=== PATIENT | female | born 1995 | race Caucasian/White ===

== ENCOUNTER 2021-09-26 10:00 | Emergency (ER) | payer OTHER, SELFPAY ==
--- NOTE | ~2021-09-26 | XR_ITS ---
XR ankle LT min 3V 09/26/2021 10:18 INDICATION: Inversion injury. PROCEDURE: 4 views left ankle COMPARISON: No prior studies for comparison. FINDINGS: Fracture, dislocation or subluxation is not identified. Ankle mortise intact. Talar dome is normal. The soft tissues appear within normal limits. No foreign bodies are identified. IMPRESSION: 1: NO ACUTE BONE OR JOINT ABNORMALITY IDENTIFIED. Reviewed, dictated and finalized at location A.
[2021-09-26 10:09] VITALS: BP 131/63; PULSE 68; RESP 14; TEMP 37.2; O2SAT 100
--- NOTE | 2021-09-26 10:49 | ED.GENADULT ---
HPI - General Adult General Chief complaint: Extremity Injury, Lower Stated complaint: Left ankle injury Source: patient Mode of arrival: ambulatory Limitations: no limitations History of Present Illness HPI narrative: Patient presents for evaluation of left ankle pain. Symptom onset last night. She was dancing and some [employer]'s when she slipped, twisting her left ankle and landing on it thereafter. She did not hit her head nor did she have a LOC. No other injuries. Pain is rated 8/10 in severity, sharp, stabbing. Pain is worse with movement and weightbearing. No paresthesias. She is having difficulty with weightbearing. She tried taking ibuprofen with mild improvement in her symptoms thereafter. LMP two weeks ago. Compliant with OC. No additional complaints or concerns. Related Data Home Medications Medication Instructions Recorded Confirmed norgestimate-ethinyl estradiol 0.25 tablet PO DAILY 09/26/21 09/26/21 [Estarylla] Allergies Allergy/AdvReac Type Severity Reaction Status Date / Time codeine Allergy Hyperactive Verified 09/26/21 10:20 latex Allergy Rash Verified 09/26/21 10:20 Penicillins Allergy Unknown Verified 09/26/21 10:20 Review of Systems Review of Systems: CONSTITUTIONAL: Denies fever, chills, or sweats. EYES: Denies visual changes, redness, or discharge. ENT: Denies rhinorrhea, congestion, sore throat, or otalgia. CARDIOVASCULAR: Denies chest pain, palpitations, or edema. RESPIRATORY: Denies cough or dyspnea. GASTROINTESTINAL: Denies abdominal pain, nausea, vomiting, or diarrhea. GENITOURINARY: Denies dysuria or hematuria. SKIN: Denies rash or itching. MUSCULOSKELETAL: Reports left ankle pain and swelling NEUROLOGIC: Denies headache, numbness, dizziness, or weakness. PSYCHIATRIC: Denies anxiety or depression. [facility] Past Medical History Medical History (Updated 09/26/21 @ 10:52 by Geronimo Arambula, CRISTIAN, BARI) No pertinent past medical history Surgical History Surgical History No pertinent past surgical history Family History Family History Mother No pertinent family history Social History Social History Smoking status: Never smoker Alcohol intake: current Alcohol use details: social Substance use: never Gender identity (if verbalized by the patient): Female Sexual Orientation (if Verbalized by the Patient): Straight or Heterosexual Spiritual care concerns: No Exam Narrative: GENERAL: Well-appearing, well-nourished, and in no acute distress. HEAD: Normocephalic, atraumatic. EYES: PERRLA and EOMI. ENT: Nares clear, no rhinorrhea or epistaxis. Mucous membranes moist. Oropharynx without tonsillar hypertrophy exudate or other lesions. Bilateral TMs pearly cheung nonbulging NECK: Supple. No adenopathy or masses. No carotid bruits or JVD CHEST: Clear to auscultation. No respiratory distress. No wheezes rales or rhonchi HEART: Regular rate and rhythm. No murmur heard. Normal peripheral pulses. ABDOMEN: Soft, nontender, nondistended, normal active bowel sounds. EXTREMITIES: She is able to dorsi and plantarflex the left foot but does so with hesitancy secondary to pain. There is mild tenderness in the anterior aspect of the ankle and proximal aspect of the foot dorsally. There is no crepitus or deformity. SKIN: Warm, dry, no rash. NEURO: No focal deficits. Alert and oriented x3. PSYCH: Normal mood and affect. Course Course Emergency Course: This is a 25-year-old female who presented with complaints of left ankle pain following a fall last night. X-ray was negative for fracture. Provided with Terrell wrap. Advised she should purchased Velcro ankle stirrup splint. She has crutches available at home. Offered medications for analgesic purposes, which she declined. She will use ibuprofen.
== END 2021-09-26 11:08 | disposition home or self-care (01) ==
PROVIDERS: Emergency Provider Nurse Practitioner; PCP Internal Medicine Infectious Disease
DX: S93.402A Sprain of unspecified ligament of left ankle, initial encounter (principal); W01.0XXA Fall on same level from slipping, tripping and stumbling without subsequent striking against object, initial encounter; Y93.41 Activity, dancing
CPT/HCPCS: 73610; 99213; G0463

== ENCOUNTER 2021-12-11 10:27 | Emergency (ER) | payer OTHER, SELFPAY ==
--- NOTE | ~2021-12-11 | XR_ITS ---
EXAMINATION: XR abdomen/kub 1V INDICATION: Flank pain TECHNIQUE: Supine views of the abdomen were obtained on 2 radiographs. COMPARISON: None FINDINGS: No urolithiasis is identified. The bowel gas pattern is normal. The visualized lung bases a re clear. There are no dilated loops of bowel. IMPRESSION: 1. No urolithiasis identified. Reviewed, dictated and finalized at location A.
[2021-12-11 10:44] VITALS: BP 139/65; PULSE 88; RESP 20; TEMP 37.1; O2SAT 99
--- NOTE | 2021-12-11 11:06 | ED.BACK ---
HPI - Back Pain/Injury General Chief Complaint: Urogenital-Female Stated Complaint: lower right back is hurting Time Seen by Provider: 12/11/21 10:55 Source: patient and RN notes reviewed Mode of arrival: ambulatory Limitations: no limitations History of Present Illness HPI Narrative: 26-year-old female presents with concern for right low back pain. Reports 2-day history of symptoms. She reports pain started after she was painting a room. She reports she was laying down last night when the pain worsened without exacerbation. She reports taking ibuprofen which slightly helps with the pain. She denies loss of bowel or bladder function, perianal anesthesia, abdominal pain, fever. She denies weakness in any extremity. She denies dysuria, frequency, urgency, hematuria. MD elicited complaint: back pain Related Data Home Medications Medication Instructions Recorded Confirmed norgestimate 0.25 mg-ethinyl 0.25 tablet PO DAILY 09/26/21 09/26/21 estradiol 35 mcg tablet (Estarylla) Allergies Allergy/AdvReac Type Severity Reaction Status Date / Time codeine Allergy Hyperactive Verified 09/26/21 10:20 latex Allergy Rash Verified 09/26/21 10:20 Penicillins Allergy Unknown Verified 09/26/21 10:20 Review of Systems Review of Systems: CONSTITUTIONAL: Denies malaise, chills, sweats, or fever. CARDIOVASCULAR: Denies chest pain, palpitations, or edema. RESPIRATORY: Denies cough or dyspnea. GASTROINTESTINAL: Denies abdominal pain, nausea, vomiting, diarrhea, loss of bowel function GENITOURINARY: Denies dysuria, hematuria, frequency, loss of bladder function. SKIN: Denies rash or itching. MUSCULOSKELETAL: Reports right low back pain NEUROLOGIC: Denies numbness, weakness, or headache. All systems reviewed & are unremarkable except as noted in HPI and below PMFSH Past Medical History Medical History (Updated 12/11/21 @ 11:38 by Huong Javier NP) No pertinent past medical history Surgical History Surgical History No pertinent past surgical history Family History Family History Mother No pertinent family history Social History Social History Smoking status: Never smoker Alcohol intake: current Alcohol use details: social Substance use: never Gender identity (if verbalized by the patient): Female Sexual Orientation (if Verbalized by the Patient): Straight or Heterosexual Spiritual care concerns: No Comments At time of signature, agree with nursing past medical, surgical, social and family history. There is no relevant family history pertinent to the presenting complaint Exam Narrative: GENERAL: Well-appearing, well-nourished, and in no acute distress. HEAD: Normocephalic, atraumatic. EYES: PERRLA and EOMI. NECK: Supple. No lymphadenopathy. CHEST: Clear to auscultation. No respiratory distress. HEART: Regular rate and rhythm. Distal pulses palpable and equal, cap refill <3 seconds ABDOMEN: Soft, nontender, nondistended, normal active bowel sounds, no palpable or pulsatile masses. No CVA tenderness MUSCULOSKELETAL: Normal range of motion and strength in all extremities; 5/5 strength with hip flexion and extension, dorsiflexion and extension, knee flexion and extension, plantar flexion and extension. Normal sensation in dermatomal distributions with sensitivity to light touch and pain. No midline back tenderness to palpation. No paraspinal tenderness. Transfers from lying to sitting to standing. SKIN: Warm, dry, no rash. No ecchymosis, erythema, open wounds to back. NEURO: No focal deficits. Alert and oriented x3. Reflexes intact. Normal gait. PSYCH: Normal mood and affect Course Course Emergency Course: Patient is aware of diagnosis, understands and agrees to treatment plan. Anticipatory guidance given. Patient agrees to f
== END 2021-12-11 11:48 | disposition home or self-care (01) ==
PROVIDERS: Emergency Provider Nurse Practitioner; PCP Internal Medicine Infectious Disease
DX: M54.50 Low back pain, unspecified (principal)
CPT/HCPCS: 74018; 81003; 99213; G0463

== ENCOUNTER 2022-11-29 12:22 | Emergency (ER) | payer OTHER, SELFPAY ==
[2022-11-29 12:27] VITALS: BP 138/77; PULSE 80; RESP 20; TEMP 36.9; O2SAT 100
--- NOTE | 2022-11-29 12:27 | ED.URI ---
HPI - URI/Sore Throat General Chief Complaint: Upper Respiratory Infection Stated Complaint: cold/ sinus Source: patient and RN notes reviewed Limitations: no limitations History of Present Illness HPI Narrative: Jv is a 27-year--old female with complaints of nasal congestion, nasal drainage and cough since Monday. Patient reports frequent productive cough. States that she has had nasal congestion since Monday, but her nasal drainage was yellow/green today. She denies chest pain or shortness of breath. States that she had a mild sore throat on Monday, but has not had a sore throat since then. She denies ear pain. Denies known fevers, but reports feeling warm earlier today. Patient also reports increased fatigue. Related Data Home Medications Medication Instructions Recorded Confirmed norgestimate 0.25 mg-ethinyl 0.25 tablet PO DAILY 09/26/21 11/29/22 estradiol 35 mcg tablet (Estarylla) Allergies Allergy/AdvReac Type Severity Reaction Status Date / Time codeine Allergy Hyperactive Verified 09/26/21 10:20 latex Allergy Rash Verified 09/26/21 10:20 Penicillins Allergy Unknown Verified 09/26/21 10:20 Review of Systems Review of Systems: CONSTITUTIONAL: Denies fever, chills, or sweats. EYES: Denies visual changes, redness, or discharge. ENT: Reports nasal congestion and drainage. CARDIOVASCULAR: Denies chest pain, palpitations, or edema. RESPIRATORY: Reports cough. Denies dyspnea. GASTROINTESTINAL: Denies abdominal pain, nausea, vomiting, or diarrhea. GENITOURINARY: Denies dysuria or hematuria. SKIN: Denies rash or itching. MUSCULOSKELETAL: Denies back pain, joint pain, or myalgia. NEUROLOGIC: Denies headache, numbness, or weakness. Pertinent positives per HPI. [facility] Past Medical History Medical History No pertinent past medical history Surgical History Surgical History No pertinent past surgical history Family History Family History Mother No pertinent family history Social History Social History Smoking status: Never smoker Alcohol intake: current Alcohol use details: social Substance use: never Gender identity (if verbalized by the patient): Female Sexual Orientation (if Verbalized by the Patient): Straight or Heterosexual Spiritual care concerns: No Comments At the time of my signature, I reviewed and agree with the nursing past medical, surgical, social, and family history. There is no relevant family history pertinent to the patient complaint. Exam Narrative: GENERAL: This is a well-nourished, well-developed patient, in no apparent distress. HEAD: normocephalic, atraumatic. EYES: Sclera clear/white. Vision is grossly intact. EARS: External ears normal, auditory canals clear and without drainage, TMs normal without perforation. Hearing grossly intact. NOSE: External nose normal, + rhinorrhea, + congestion. THROAT: Mucous membranes moist, posterior pharynx clear. NECK: Neck supple, non-tender without lymphadenopathy, masses or thyromegaly. CARDIOVASCULAR: Regular rate and rhythm without murmurs, gallops, or rubs. RESPIRATORY: Clear to auscultation. Breath sounds equal bilaterally. No wheezes, rales, or rhonchi. GASTROINTESTINAL: Abdomen soft, non-tender, nondistended. Bowel sounds are active. No hepato-splenomegaly, or palpable masses. No guarding. SKIN: warm, intact with no suspicious lesions or rash, good texture and turgor. NEURO: awake, alert, and oriented to person, place and time. There were no obvious focal neurologic abnormalities. Course Course Level of Care: Express Care Visit Vital Signs Vital signs: Vital Signs Temperature 98.5 F 11/29/22 12:27 Pulse Rate 80 11/29/22 12:27 Respiratory Rate 20 11/29/22 12:27 Bl
[2022-11-29 12:31] VITALS: BP 138/77; PULSE 80; RESP 20; TEMP 36.9; O2SAT 100
== END 2022-11-29 12:37 | disposition home or self-care (01) ==
PROVIDERS: Emergency Provider Nurse Practitioner; PCP Family Medicine
DX: J06.9 Acute upper respiratory infection, unspecified (principal); R05.9 Cough, unspecified
CPT/HCPCS: 99213; G0463

== ENCOUNTER 2022-12-23 08:02 | Emergency (ER) | payer OTHER, SELFPAY ==
--- NOTE | 2022-12-23 08:05 | ED.DENTAL ---
HPI - Dental/Oral General Chief complaint: Dental/Oral Stated complaint: poss thrush Time Seen by Provider: 12/23/22 08:03 Source: patient Mode of arrival: ambulatory Limitations: no limitations History of Present Illness HPI Narrative: Ms. Lawrence is a 27-year-old female patient presenting to the clinic today with complaints of possible thrush times 1-2 days. She reports she has been using her albuterol and steroid inhaler and is unsure if she has rinsed her mouth every time. States she is having burning itching in her mouth. Also reports a foul taste. Denies any fever or chills. Related Data Home Medications Medication Instructions Recorded Confirmed norgestimate 0.25 mg-ethinyl 0.25 tablet PO DAILY 09/26/21 12/23/22 estradiol 35 mcg tablet (Estarylla) Allergies Allergy/AdvReac Type Severity Reaction Status Date / Time codeine Allergy Hyperactive Verified 12/23/22 08:15 latex Allergy Rash Verified 12/23/22 08:15 Penicillins Allergy Unknown Verified 12/23/22 08:15 Review of Systems Review of Systems: Pertinent positives per HPI. Patient denies any fever, chills, rash, headache, visual changes, dizziness, runny nose, sore throat, shortness of breath, chest pain, palpitations, nausea, vomiting, diarrhea, constipation, abdominal pain, or any urinary issues. [facility] Past Medical History Medical History No pertinent past medical history Surgical History Surgical History No pertinent past surgical history Family History Family History Mother No pertinent family history Social History Social History Smoking status: Never smoker Alcohol intake: current Alcohol use details: social Substance use: never Gender identity (if verbalized by the patient): Female Sexual Orientation (if Verbalized by the Patient): Straight or Heterosexual Spiritual care concerns: No Comments At the time of my signature, I reviewed and agree with the nursing past medical, surgical, social, and family history. There is no relevant family history pertinent to the patient complaint. Exam Narrative: General: Well-developed, well nourished, in no apparent distress Head: Normocephalic, atraumatic Eyes: Pupils equally round and reactive to light bilaterally, EOM intact, sclera and conjunctive clear, no discharge, lids normal Ears: TMs intact and clear, ear canals clear, no drainage, grossly hearing normal. Nose: Nares patent, no discharge, no inflammation, no sinus tenderness. Mouth: Oropharynx without lesions or masses, good dentition, MMM. White/yellow Lisa like lesions to the tongue Neck: Supple, trachea midline, no enlargement of anterior or posterior cervical nodes, no thyroid masses or goiter palpable. Cardio: Regular rate and rhythm, s1 and s2 normal, no murmur appreciated. Resp: Clear to auscultation bilaterally anteriorly and posteriorly, no rhonchi, rales, wheezing or rubs Course Course Emergency Course: Portions of this record may have been created with voice recognition software. Level of Care: Express Care Visit Vital Signs Vital signs: Vital signs reviewed MDM - Dental/Oral MDM Narrative Medical decision making narrative: At the time of visit patient is resting comfortably on exam table. I suspect patient has oral thrush. Will send in prescription for nystatin. Supportive measures were discussed with the patient and she voiced understanding discharge instructions and agrees to treatment plan. Differential Diagnosis Differential diagnosis: Likely other (Thrush, [id number],tooth infection, gum infection) Discharge Plan Discharge Clinical Impression: Lisa, oral Patient Disposition: Home, Self-Care Condition: Stable I
[2022-12-23 08:15] VITALS: BP 144/75; PULSE 76; RESP 16; TEMP 36.9; O2SAT 100
--- NOTE | 2023-01-01 09:03 | ED.GENADULT ---
HPI - General Adult General Chief complaint: Dental/Oral <Vladimir Mcdermott APRN - Last Filed: 01/03/23 08:21> Stated complaint: poss thrush <Vladimir Mcdermott APRN - Last Filed: 01/03/23 08:21> Time Seen by Provider: 12/23/22 08:03 <Vladimir Mcdermott APRN - Last Filed: 01/03/23 08:21> Source: patient <CRISTIAN Raymundo BC - Last Filed: > Mode of arrival: ambulatory <CRISTIAN Raymundo BC - Last Filed: > Limitations: no limitations <CRISTIAN Raymundo BC - Last Filed: > History of Present Illness HPI narrative: Ms. Lawrence is a 27-year-old female patient presenting to the clinic today with complaints of possible thrush. She reports she has been using her inhalers and thinks that this may be causing the thrush. States her mouth is itching and burning. <Vladimir Mcdermott APRN - Last Filed: 01/03/23 08:21> Related Data Home medications: Home Medications Medication Instructions Recorded Confirmed norgestimate 0.25 mg-ethinyl 0.25 tablet PO DAILY 09/26/21 01/01/23 estradiol 35 mcg tablet (Estarylla) albuterol sulfate 2.5 mg/3 mL 2.5 mg inhalation Q4H PRN 01/01/23 01/01/23 (0.083 %) solution for nebulization Shortness Of Breath Or Wheezing montelukast 10 mg tablet 10 mg PO DAILY 01/01/23 01/01/23 (Singulair) <Vladimir Mcdermott APRN - Last Filed: 01/03/23 08:21> Allergies/adverse reactions: Allergies Allergy/AdvReac Type Severity Reaction Status Date / Time codeine Allergy Hyperactive Verified 01/01/23 08:54 latex Allergy Rash Verified 01/01/23 08:54 Penicillins Allergy Unknown Verified 01/01/23 08:54 <Vladimir Mcdermott APRN - Last Filed: 01/03/23 08:21> Review of Systems Review of Systems: Pertinent positives per HPI. Patient denies any fever, chills, rash, headache, visual changes, dizziness, cough, runny nose, sore throat, shortness of breath, chest pain, palpitations, nausea, vomiting, diarrhea, constipation, abdominal pain, or any urinary issues. <Vladimir Mcdermott APRN - Last Filed: 01/03/23 08:21> PMFSH Past Medical History Medical History: Medical History No pertinent past medical history <Vladimir Mcdermott APRN - Last Filed: 01/03/23 08:21> Surgical History Surgical History: Surgical History No pertinent past surgical history <Vladimir Mcdermott APRN - Last Filed: 01/03/23 08:21> Family History Family History: Family History Mother No pertinent family history <Vladimir Mcdermott APRN - Last Filed: 01/03/23 08:21> Social History Social History: Social History Smoking status: Never smoker Alcohol intake: current Alcohol use details: social Substance use: never Gender identity (if verbalized by the patient): Female Sexual Orientation (if Verbalized by the Patient): Straight or Heterosexual Spiritual care concerns: No <Vladimir Mcdermott APRN - Last Filed: 01/03/23 08:21> Comments At the time of my signature, I reviewed and agree with the nursing past medical, surgical, social, and family history. There is no relevant family history pertinent to the patient complaint. <Vladimir Mcdermott APRN - Last Filed: 01/03/23 08:21> Exam Narrative: General: Well-developed, well nourished, in no apparent distress Head: Normocephalic, atraumatic Eyes: Pupils equally round and reactive to light bilaterally, EOM intact, sclera and conjunctive clear, no discharge, lids normal Ears: TMs intact and clear, ear canals clear, no drainage, grossly hearing normal. Nose: Nares patent, no discharge, no inflammation, no sinus tenderness. Mouth: Oropharynx with white yellowish lesions to the
== END 2022-12-23 08:27 | disposition home or self-care (01) ==
PROVIDERS: Emergency Provider Nurse Practitioner Family; PCP Family Medicine
DX: B37.0 Candidal stomatitis (principal)
CPT/HCPCS: 99213; G0463

== ENCOUNTER 2023-01-01 08:37 | Emergency (ER) | payer OTHER, SELFPAY ==
[2023-01-01 08:42] VITALS: BP 131/64; PULSE 67; RESP 16; TEMP 36.8; O2SAT 100
--- NOTE | 2023-01-01 09:20 | ED.GENADULT ---
HPI - General Adult General Chief complaint: Unspecified Stated complaint: Mouth Sore Source: patient Mode of arrival: ambulatory Limitations: no limitations History of Present Illness HPI narrative: Patient presents for evaluation of plaque to her tongue. She was evaluated here on 12/23/2022 for the same. Today she informs me that her symptoms started a few days prior to the 12/23/22 visit. She was diagnosed with possible thrush and was given a script for nystatin suspension, which she took as directed. She states her symptoms did not markedly improve on medication until the last few days on the medication. She uses inhalers and was previously not rinsing her mouth after using her inhalers, however has been rinsing after her 12/23/22 visit. She is under the care of an tile sprayer and has an upcoming appt on 01/09/23. She has been brushing her teeth and tongue about four times per day without improvement. Denies hx of autoimmune disease. She does not smoke. She denies any pain or itching associated with her symptoms. Denies sore throat and any other symptoms. Related Data Home Medications Medication Instructions Recorded Confirmed norgestimate 0.25 mg-ethinyl 0.25 tablet PO DAILY 09/26/21 01/01/23 estradiol 35 mcg tablet (Estarylla) albuterol sulfate 2.5 mg/3 mL 2.5 mg inhalation Q4H PRN 01/01/23 01/01/23 (0.083 %) solution for nebulization Shortness Of Breath Or Wheezing montelukast 10 mg tablet 10 mg PO DAILY 01/01/23 01/01/23 (Singulair) Allergies Allergy/AdvReac Type Severity Reaction Status Date / Time codeine Allergy Hyperactive Verified 01/01/23 08:54 latex Allergy Rash Verified 01/01/23 08:54 Penicillins Allergy Unknown Verified 01/01/23 08:54 Review of Systems Review of Systems: CONSTITUTIONAL: Denies fever, chills, or sweats. EYES: Denies visual changes, redness, or discharge. ENT: Reports plaque to the tongue. Denies any associated itching or pain. Denies rhinorrhea, congestion, sore throat, or otalgia. CARDIOVASCULAR: Denies chest pain, palpitations, or edema. RESPIRATORY: Denies cough or dyspnea. GASTROINTESTINAL: Denies abdominal pain, nausea, vomiting, or diarrhea. GENITOURINARY: Denies dysuria or hematuria. SKIN: Denies rash or itching. MUSCULOSKELETAL: Denies back pain, joint pain, or myalgia. NEUROLOGIC: Denies headache, numbness, dizziness, or weakness. PSYCHIATRIC: Denies anxiety or depression. PMFSH Past Medical History Medical History No pertinent past medical history Surgical History Surgical History No pertinent past surgical history Family History Family History Mother No pertinent family history Social History Social History Smoking status: Never smoker Alcohol intake: current Alcohol use details: social Substance use: never Gender identity (if verbalized by the patient): Female Sexual Orientation (if Verbalized by the Patient): Straight or Heterosexual Spiritual care concerns: No Exam Narrative: GENERAL: Well-appearing, well-nourished, and in no acute distress. HEAD: Normocephalic, atraumatic. EYES: PERRLA and EOMI. ENT: Nares clear, no rhinorrhea or epistaxis. Mucous membranes moist. There is a arce plaque noted to the tongue. Oropharynx without tonsillar hypertrophy exudate. Bilateral TMs pearly cheung nonbulging NECK: Supple. No adenopathy or masses. No carotid bruits or JVD CHEST: Clear to auscultation. No respiratory distress. No wheezes rales or rhonchi HEART: Regular rate and rhythm. No murmur heard. Normal peripheral pulses. ABDOMEN: Soft, nontender, nondistended, normal active bowel sounds. EXTREMITIES: Normal range of motion. No edema. SKIN: Warm, dry, no rash. NEURO: No focal deficits. Alert
== END 2023-01-01 09:10 | disposition home or self-care (01) ==
PROVIDERS: Emergency Provider Nurse Practitioner; PCP Family Medicine
DX: K13.29 Other disturbances of oral epithelium, including tongue (principal)
CPT/HCPCS: 99213; G0463

== ENCOUNTER 2023-01-27 09:49 | Emergency (ER) | payer OTHER, SELFPAY ==
[2023-01-27 09:55] VITALS: BP 143/87; PULSE 68; RESP 14; TEMP 36.5; O2SAT 100
--- NOTE | 2023-01-27 11:18 | ED.SKABFB ---
HPI - Skin/Abscess/Foreign Bdy General Chief complaint: Skin/Abscess/Foreign Body Stated complaint: infected bite on left ankle Source: patient and RN notes reviewed History of Present Illness HPI narrative: 27-year-old female presents to the [facility] with a wound to her left ankle. Patient stated about 4 days ago she was bit by a mosquito to her left medial side of her ankle. Patient stated it became extremely itchy and she continued to scratch at it vigorously. Since then she has noticed increased redness and swelling to the area. Patient states the redness is starting to expand up her leg. Patient has notice clear drainage as well. Patient has been using antibiotic ointment to the area with no relief. Patient just ordered hydrocortisone cream to use for itching but is not been using it yet. Patient is concerned it is infected. Patient denies any fever, chills, body aches. Related Data Home Medications Medication Instructions Recorded Confirmed norgestimate 0.25 mg-ethinyl 0.25 tablet PO DAILY 09/26/21 01/27/23 estradiol 35 mcg tablet (Estarylla) albuterol sulfate 2.5 mg/3 mL 2.5 mg inhalation Q4H PRN 01/01/23 01/27/23 (0.083 %) solution for nebulization Shortness Of Breath Or Wheezing montelukast 10 mg tablet 10 mg PO DAILY 01/01/23 01/27/23 (Singulair) Allergies Allergy/AdvReac Type Severity Reaction Status Date / Time codeine Allergy Hyperactive Verified 01/27/23 10:04 latex Allergy Rash Verified 01/27/23 10:04 Penicillins Allergy Rash Verified 01/27/23 10:04 Review of Systems Review of Systems: CONSTITUTIONAL: Denies fever, chills, or sweats. EYES: Denies visual changes, redness, or discharge. ENT: Denies otalgia and sore throat CARDIOVASCULAR: Denies chest pain, palpitations, or edema. RESPIRATORY: Denies cough or dyspnea. GASTROINTESTINAL: Denies abdominal pain, nausea, vomiting, or diarrhea. GENITOURINARY: Denies dysuria or hematuria. SKIN: Wound to the left medial ankle. MUSCULOSKELETAL: Denies back pain, joint pain, or myalgia. NEUROLOGIC: Denies headache, numbness, or weakness. Pertinent positives per HPI. [facility] Past Medical History Medical History No pertinent past medical history Surgical History Surgical History No pertinent past surgical history Family History Family History Mother No pertinent family history Social History Social History Smoking status: Never smoker Alcohol intake: current Alcohol use details: social Substance use: never Gender identity (if verbalized by the patient): Female Sexual Orientation (if Verbalized by the Patient): Straight or Heterosexual Spiritual care concerns: No Comments At the time of my signature, I reviewed and agree with the nursing past medical, surgical, social, and family history. There is no relevant family history pertinent to the patient complaint. Exam Narrative: GENERAL: This is a well-nourished, well-developed patient, in no apparent distress. HEAD: normocephalic, atraumatic. EYES: Sclera clear/white. Vision is grossly intact. EARS: External ears normal, auditory canals clear and without drainage, TMs normal without perforation. Hearing grossly intact. NOSE: External nose normal with no obvious nasal discharge, nares without redness, no rhinorrhea. THROAT: Mucous membranes moist, posterior pharynx clear. NECK: Neck supple, non-tender without lymphadenopathy, masses or thyromegaly. CARDIOVASCULAR: Regular rate and rhythm without murmurs, gallops, or rubs. RESPIRATORY: Clear to auscultation. Breath sounds equal bilaterally. No wheezes, rales, or rhonchi. GASTROINTESTINAL: Abdomen soft, non-tender, nondistended. Bowel sounds are active. No hepato-splenomegaly
== END 2023-01-27 10:35 | disposition home or self-care (01) ==
PROVIDERS: Emergency Provider Nurse Practitioner Family; PCP Family Medicine
DX: L03.116 Cellulitis of left lower limb (principal)
CPT/HCPCS: 99213; G0463

== ENCOUNTER 2023-10-20 14:57 | Emergency (ER) | payer OTHER, SELFPAY ==
--- NOTE | 2023-10-20 15:04 | ED.SKABFB ---
HPI - Skin/Abscess/Foreign Bdy General Chief complaint: Skin/Abscess/Foreign Body Stated complaint: Left Leg/Skin Sore Time Seen by Provider: 10/20/23 15:05 Source: patient, RN notes reviewed and old records reviewed Mode of arrival: ambulatory Limitations: no limitations History of Present Illness HPI narrative: 28-year-old female presents to the [facility] with concerns for had infection to the left lateral mid calf area. Patient states that she was shaving yesterday she scraped herself, redness, swelling has since developed. Reports clear yellow drainage Has applied Neosporin and washed at Onset (ago): day(s) (1) Tetanus up to date: yes Related Data Home Medications Medication Instructions Recorded Confirmed norgestimate 0.25 mg-ethinyl 0.25 tablet PO DAILY 09/26/21 10/20/23 estradiol 35 mcg tablet (Estarylla) albuterol sulfate 2.5 mg/3 mL 2.5 mg inhalation Q4H PRN 01/01/23 10/20/23 (0.083 %) solution for nebulization Shortness Of Breath Or Wheezing montelukast 10 mg tablet 10 mg PO DAILY 01/01/23 10/20/23 (Singulair) fluticasone propionate 50 50 mcg intranasal DIRECTED 10/20/23 10/20/23 mcg/actuation nasal spray,suspension olopatadine 0.6 % nasal spray 0.6 spray intranasal DIRECTED 10/20/23 10/20/23 Allergies Allergy/AdvReac Type Severity Reaction Status Date / Time codeine Allergy Hyperactive Verified 01/27/23 10:04 latex Allergy Rash Verified 01/27/23 10:04 Penicillins Allergy Rash Verified 01/27/23 10:04 Review of Systems Review of Systems: All systems reviewed & are unremarkable except as noted in HPI and below Constitutional: Constitutional: Reports no additional constitutional complaints Eyes: Eyes: Reports no additional eye complaints ENT: Reports system reviewed and no additional complaints, except as documented Cardiovascular: Cardiovascular: Reports no additional cardiovascular complaints, Denies chest pain and Denies dyspnea Respiratory: Respiratory: Reports no additional respiratory complaints, Denies chest congestion, Denies cough and Denies dyspnea Gastrointestinal: Gastrointestinal: Reports no additional gastrointestinal complaints, Denies abdominal pain, Denies nausea and Denies vomiting Musculoskeletal: Musculoskeletal: Reports no additional musculoskeletal complaints Integumentary/Breasts: Skin/Breast: Reports as per HPI, Reports erythema, Reports skin pain, Reports skin swelling and Reports wounds Neurologic: Reports system reviewed and no additional complaints, except as documented Psychiatric: Psychiatric: Reports no additional psychiatric complaints Allergic/Immunologic: Allergic/Immunologic: Reports no additional allergic/immunologic complaints PMFSH Past Medical History Medical History No pertinent past medical history Surgical History Surgical History No pertinent past surgical history Family History Family History Mother No pertinent family history Social History Social History Smoking status: Never smoker Alcohol intake: current Alcohol use details: social Substance use: never Gender identity (if verbalized by the patient): Female Sexual Orientation (if Verbalized by the Patient): Straight or Heterosexual Spiritual care concerns: No Comments At the time of my signature, I reviewed and agree with the nursing past medical, surgical, social, and family history. There is no relevant family history pertinent to the patient complaint. Exam Const: General: cooperative, healthy appearing, comfortable, no acute distress, well developed, alert and well nourished Nutritional Appearance: well nourished Orientation/consciousness: patient oriented x3 Limitations: no limitations HENMT: Head: normal to inspection Ears: heari
[2023-10-20 15:05] VITALS: BP 160/73; PULSE 95; RESP 18; TEMP 37.3; O2SAT 99
[2023-10-20 15:08] VITALS: BP 160/73; PULSE 95; RESP 18; TEMP 37.3; O2SAT 99
== END 2023-10-20 15:21 | disposition home or self-care (01) ==
PROVIDERS: Emergency Provider Nurse Practitioner
DX: S80.812A Abrasion, left lower leg, initial encounter (principal); L03.116 Cellulitis of left lower limb; W26.8XXA Contact with other sharp object(s), not elsewhere classified, initial encounter
CPT/HCPCS: 99213; G0463

== ENCOUNTER 2023-12-21 18:55 | Emergency (ER) | payer OTHER, SELFPAY ==
[2023-12-21 19:07] VITALS: BP 143/99; PULSE 86; RESP 20; TEMP 37.2; O2SAT 100
--- NOTE | 2023-12-21 19:33 | ED.WOUNDLAC ---
HPI - Wound/Laceration General Chief Complaint: Wound/Laceration Stated Complaint: Skin Sore/Left Knee Time Seen by Provider: 12/21/23 19:21 Source: patient, RN notes reviewed and old records reviewed Mode of arrival: ambulatory Limitations: no limitations History of Present Illness HPI narrative: 28 year old female who presents to [facility] care with complaints of sore to her left knee where she hit it on the wall at home on the 11 of this month. Patient reports that she has had MRSA infection, cellulitis and also gangrene at age 6 to her left leg in the past. Patient reports that she noted some redness to skin tissue around scabbed abrasion on her knee and her leg feels achy and she has been running a low grade temperature. Patient is concerned due to past history of infections to that leg.. Onset (ago): day(s) (day 3) Extremity Location: Left: knee (scabbed abrasion with surrounding redness) Treatments prior to arrival: other (Hibiclens soap and DORCAS) Related Data Home Medications Medication Instructions Recorded Confirmed bupropion HCl 150 mg 24 hr tablet, 150 mg PO DAILY 12/21/23 12/21/23 extended release norgestimate 0.25 mg-ethinyl 1 tablet PO DAILY 12/21/23 12/21/23 estradiol 35 mcg tablet (Sprintec (28)) Allergies Allergy/AdvReac Type Severity Reaction Status Date / Time codeine Allergy Intermediate Hyperactive Verified 12/21/23 19:17 latex Allergy Mild Rash Verified 12/21/23 19:17 Penicillins Allergy Mild Rash Verified 12/21/23 19:17 Review of Systems Review of Systems: CONSTITUTIONAL: reports low grade fever,no chills, or sweats. CARDIOVASCULAR: Denies chest pain, palpitations, or edema. RESPIRATORY: Denies cough or dyspnea. GASTROINTESTINAL: Denies abdominal pain, nausea, vomiting SKIN: Reports redness and swelling. Denies purulent drainage,warm to palpation no vesicles, feels achy MUSCULOSKELETAL: Denies myalgia. 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 There is no relevant family history pertinent to the presenting complaint Exam Narrative: GENERAL: Well-appearing, well-nourished, and in no acute distress. HEAD: Normocephalic, atraumatic. EYES: PERRLA and EOMI. ENT: Nares clear, no rhinorrhea or epistaxis. Mucous membranes moist. NECK: Supple. no lymphadenopathy CHEST: Clear to auscultation. No respiratory distress. HEART: Regular rate and rhythm. No murmur heard. Normal peripheral pulses. ABDOMEN: Soft, nontender, nondistended, normal active bowel sounds. EXTREMITIES: Normal range of motion. No edema. SKIN: Warm, dry. Erythema, tenderness, warmth noted to skin at left knee scabbed abrasion with surrounding mild pink tissue 14cm X 7 cm. No vesicles, bullae, necrosis, ecchymosis, crepitus noted NEURO: No focal deficits. Alert and oriented x3. Course Course Emergency Course: Patient is aware of diagnosis, understands and agrees to treatment plan. Anticipatory guidance given. Patient agree
== END 2023-12-21 19:52 | disposition home or self-care (01) ==
PROVIDERS: Emergency Provider Registered Nurse
DX: L02.416 Cutaneous abscess of left lower limb (principal); F41.9 Anxiety disorder, unspecified; F32.A Depression, unspecified; Z86.14 Personal history of Methicillin resistant Staphylococcus aureus infection
CPT/HCPCS: 99213; G0463

== ENCOUNTER 2024-11-15 09:23 | Emergency (ER) | payer OTHER, SELFPAY ==
[2024-11-15 09:27] VITALS: BP 137/76; PULSE 63; RESP 16; TEMP 36.8; O2SAT 100
--- OUTSIDE RECORDS SUMMARY | 2024-11-15 09:27 | XMS_ITS | Clinical Summary ---
Author Organization [facility] Address [address] [place] [address] Phone Care Team Providers Care Speech Assistant Name Role Phone Domingo Murcia MD Primary Care Provider [phone] Immunizations Immunization Administration Dates Next Due Covid-19, Mrna, Lnp-s, Pf, 3 0 Mcg/0.3 Ml Dose (Pfizer) 02/20/2021,01/30/2021 DTAP VACCINE, 5 PERTUSSIS AN TIGENS, VACCINE IM 10/10/2000,02/04/1997,04/23/1996,02/19,1995 Hepatitis B Vaccine, Pediatric/adolescent 04/23/1996,1995,1995 Hib (HbOC) 02/04/1997, 6,02/20/1996,12/24 Human Papillomavirus Vaccine (HPV), quadrivalent 05/17/2013 Inactivated Polio Vaccine 10/10/2000,,02/20/1996,12/24 Influenza Vaccine, Quadrivalent, PF 04/27/2010 MMR Vaccine 10/10/2000,10/22/1996 Meningococcal Vaccine 05/17/2013 OPV 04/23/1996,02/20/1996,1995 TDAP Vaccine 09/19/2018,2006 Varicella Vaccine Live 10/22/1996 Social History Tobacco Use Types Packs/Day Years Used Date Smoking Tobacco: Never Assessed Comments Unknown Sex and Gender Information Value Date Recorded Sex Assigned at Not on file Legal Sex Female 9:46 AM CDT Gender Identity Not on file Sexual Orientation Not on file Plan of Treatment Health Maintenance Due Date Last Done Comments Hepatitis C Virus (HCV) Screening 1995 Influenza Immunization (#1) 2024 04/27/2010 SARS-COV-2 Immunization ( season) 2024 02/20/2021, 01/30/2021 DTaP/Tdap/Td Immunization (8 - Td or Tdap) 09/19/2028 09/19/2018, 2006, 10/10/2000, Additional history exists Respiratory Syncytial Virus (RSV) Immunization (Adult) (1 - 1-dose 75+ series) 10/19/2070 Hepatitis B Immunization Completed 996, 1995, 1995 Human Papillomavirus (HPV) Immunization Discontinued 05/17/2013 Meningococcal Immunization (ACWY) Completed 05/17/2013 Pneumococcal Immunization Combined Aged Out No longer eligible based on patient's age to complete this topic Rotavirus Immunization Aged Out No lo nger eligible based on patient's age to complete this topic Insurance [address] [place], [place] [id number] [place] [address] [facility] Care Teams Speech Assistant Relationship Specialty Start Date End Date Domingo Murcia MD [address] [place] [address] PCP - General Infectious Disease 03/08/17
--- OUTSIDE RECORDS SUMMARY | 2024-11-15 09:27 | XMS_ITS | Encounter Summary ---
Author Organization [facility] Address [address] [place] [address] Care Team Providers Care Physical Therapy Instructor Name Role Phone Martir Foster MD Unavailable [phone] Lucy Chappell NP Primary Care Provider [phone] Encounter Details Date Type Department Care Team (Late st Contact Info) Description 03/19/2024 Telephone [facility] Primary Care at [address] [place] [address] Lucy Chappell TERMINAL SUPERINTENDENT [address] [place] [address] [address] [place] [address] Social History Tobacco Use Types Packs/Day Years Used Date Smoking Tobacco: Never Cigarettes Smokeless Tobacco: Never Alcohol Use Standard Drinks/Week Comments Not Currently 0 (1 standard drink = 0.6 oz pur e alcohol) AUDIT-C Answer Date Recorded Frequency of Alcohol Consumption Never 08/12/2019 Average Number of Drinks Not on file 020 Frequency of Binge Drinking Not on file 09/2019 PHQ-2 Answer Date Recorded PHQ-2 Total Score (If total score is 3 or more points, staff should administer the PHQ-9) 0 02/08/2024 Comments No Sex and Gender Information Value Date Recorded Sex Assigned at Not on file Legal 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 Gender Identity Female 01/01/2023 9:14 AM CDT Sexual Orientation Not on file documented as of this encounter Plan of Treatment Not on file documented as of this encounter Visit Diagnoses Not on filedocumented in this encounter Care Teams Physical Therapy Instructor Relationship Specialty Start Date End Date Lucy Chappell NP [address] [place] [address] PCP - General Family Medicine 02/08/24 Martir Foster MD [address] [facility] [address] [place] [address] Conduit Installer Obstetrics and Gynecology 01/08/20 documented as of this encounter
--- OUTSIDE RECORDS SUMMARY | 2024-11-15 09:28 | XMS_ITS | Referral Summary ---
Author Organization [facility] Medical [facility] Building B Address [address] [place] [id number] Care Team Providers Care Refrigerated Cargo Clerk Name Role Phone Martir Foster MD Unavailable [phone] Lucy Chappell NP Primary Care Provider [phone] Encounters Date Type Department Care Team Description 10/09/2024 Results Follow-Up [place] [facility] [address] [place] [phone] Martir Foster MD 10/01/2024 8:30 AM CDT Office Visit [address] [phone] Martir Foster MD Well woman exam (Primary Dx); Persistent depressive disorder 09/10/2024 7:30 AM HIDE INSPECTOR Office Visit [facility] Primary Care at [address] [place] [phone] Lucy Chappell NP Allergic rhinitis, unspecified seasonality, unspecified trigger (Primary Dx); Moderate persistent asthma without complication; Moderate episode of recurrent major depressive disorder (HCC); Generalized anxiety disorder; Overweight with body mass index (BMI) of 29 to 29.9 in adult from Last 3 Months Allergies Active Allergy Reactions Criticality Noted Date Comments Cefaclor Codeine Other (See comments) Reaction: excitability, , Reaction: excitability, Latex Hives Reaction: Hives, Penicillins Rash Reaction: rash, Medications frovatriptan (FROVA) 2.5 mg tabletIndications :Migraine Take 1 tablet (2.5 mg total) by mouth once as needed for migraine (May repeat after 2 hours, do not exceed 3 doses in 24 hours.) for up to 1 dose May repeat in 2 hours if unresolved. Do not exceed 7.5 mg in 24 hours. 9 tablet 5 2 Active magnesium citrate, bulk, powder Active montelukast (SINGULAIR) 10 mg tabletIndications :Allergic rhinitis, unspecified seasonality, unspecified trigger,Moderate persistent asthma without complication Take 1 tablet (10 mg total) by mouth daily 90 tablet 3 3 Active fluticasone propionate (FLONASE) 50 mcg/actuation nasal spray Administer 2 sprays into each nostril daily 3 each 3 4 02/12/20 25 Active albuterol HFA (PROVENTIL HFA,VENTOLIN HFA,PROAIR HFA) 90 mcg/actuation inhalerIndication s:Moderate persistent asthma without complication Inhale 2 puffs every 4 (four) hours as needed for wheezing or shortness of breath 3 each 2 4 Active busPIRone (BUSPAR) 10 mg tabletIndications :Generalized Anxiety Disorder Take 1 tablet (10 mg total) by mouth 2 (two) times a day 180 tablet 3 5 10/02/19 26 Active buPROPion XL (WELLBUTRIN XL) 300 mg 24 hr tabletIndications :Persistent depressive disorder Take 1 tablet (300 mg total) by mouth every morning 90 tablet 3 5 10/02/19 26 Active norgestimate-ethi nyl estradioL (Sprintec, 28,) 0.25-35 mg-mcg per tablet Take 1 tablet by mouth daily 84 tablet 3 5 Active Active Problems Problem Noted Date Diagnosed Date AVM (arteriovenous malformation) brain 4 Overview (03/08/2024): Cerebral angiogram September 26, 2014 was negative for AVM per neurologist 03/08/2024 Assessment & Plan (02/08/2024 3:30 PM CDT): Discussed with patient that I can refer her to a neurologist for more extensive evaluation if she desires Persistent depressive disorder 04/08/2023 Assessment & Plan (04/08/2023 2:55 PM CDT): Chronic, persistent symptoms including several of the following: depressed mood for most of the day, for more days than not, as indicated by either subjective account or observation by others for at least 2 years, and at least the presence, while depressed, of 2 or more of the following: poor appetite or overeating, insomnia or hypersomnia, low energy or fatigue, low self-esteem, poor concentration or difficulty making decisions, feelings of hopelessness. It is additionally noted that the patient has never been without the symptoms for more than 2 months at a time. Additionally, it is noted that there has never been a manic episode or a hypomanic episode, and criteria have never been met for cyclothymic disorder. The disturbance is not better explained by a persistent schizoaffective disorder, schizophrenia, delusional disorder, or other specified or unspecified schizophrenia spectrum and other psychotic disorder. The symptoms are not attributable to the physiological effects of a substance (e.g., a drug of abuse, a medication) or another medical condition (e.g., hypothyroidism). The patient does report that the symptoms cause clinically significant distress or impairment in social, occupational, or other important areas of functioning. The patient denies current suicidal ideation. The patient denies current homicidal ideation. The patient does not endorse any symptoms of psychosis, you, or hypomania. I discussed the importance of lifestyle modification with the patient today. The patient will focus on lifestyle modification including: changes to diet, incorporate regularly scheduled exercise, obtain sufficient sleep/maintain proper sleep hygiene, and focus on reducing (or managing) stress levels with healthy techniques. Continue to monitor. Encounter for psychiatric assessment 03/16/2023 Assessment & Plan (03/16/2023 9:23 AM CDT): Psychiatric assessment was completed during the appointment today. All the paperwork completed by the patient was reviewed by me with the patient. All of the questions posed to me by the patient were answered. A treatment plan was developed in line with the information presented to me. Refer to specific problems for additional information regarding assessment and treatment recommendations. Coated tongue 01/16/2023 Assessment & Plan (01/16/2023 9:33 AM CDT): Oral swab collected for yeast culture. No evidence of oral thrush on physical exam. PTSD (post-traumatic stress disorder) 08/05/2022 Assessment & Plan (03/12/2024 12:58 PM CDT): Continue counseling Assessment & Plan (02/08/2024 2:55 PM CDT): Is in counseling for this Assessment & Plan (04/08/2023 2:55 PM CDT): Chronic, persistent. Therapy warranted. Continue to monitor. Assessment & Plan (08/30/2022 11:24 AM HIDE INSPECTOR): Stable. Cont. Current prescription medications. Will temporarily fill Rxs until patient is able to get in to see psychiatry. Generalized anxiety disorder 08/05/2022 Assessment & Plan (03/12/2024 12:59 PM CDT): Improved with the addition of the bupropion XL 300 mg daily. Is now reserving the buspirone for p.r.n. use. Assessment & Plan (02/08/2024 2:56 PM CDT): Continue buspirone 10 mg b.i.d. and increase bupropion XL 300 mg daily. In counseling. Discussed relaxation techniques Assessment & Plan (08/30/2023 10:06 AM HIDE INSPECTOR): Had a few episodes of syncope last year, she believes they are associated with anxiety. However, she has not spoken to her psychiatrist yet about the syncope. Please cont current meds, Buspar, follow up with psychiatry. Patient canceled her last appt with psychiatry in Jun 2023. Assessment & Plan (03/16/2023 10:42 AM CDT): Chronic condition with persistent symptoms. Medication changes today: buspirone 10 mg BID Insight-oriented, supportive counseling provided. Continued management as discussed Assessment & Plan (08/30/2022 11:24 AM HIDE INSPECTOR): Stable. Cont. Current prescription medications. Will temporarily fill Rxs until patient is able to get in to see psychiatry. Assessment & Plan (08/07/2022 11:31 AM HIDE INSPECTOR): Trial of Lexapro 10 mg every day. Referred to Psychiatry for further medication management. Go to nearest ER if you feel you may be a harm to yourself or to someone else. Patient is aware that I will not be giving her any further refills. Continue counseling. Moderate episode of recurrent major depressive d isorder 08/05/2022 Assessment & Plan (03/12/2024 12:59 PM CDT): Denies any depressive symptoms at present. Continue bupropion XL 300 mg daily Assessment & Plan (02/08/2024 2:57 PM CDT): Increasing bupropion XL to 300 mg daily. Follow-up in 1 month for re-evaluation Assessment & Plan (08/30/2023 10:07 AM HIDE INSPECTOR): Stable. Cont psychotherapy. Assessment & Plan (08/07/2022 11:32 AM HIDE INSPECTOR): Trial of Lexapro 10 mg every day. Referred to Psychiatry for further medication management. Go to nearest ER if you feel you may be a harm to yourself or to someone else. Patient is aware that I will not be giving her any further refills. Continue counseling. Migraine with aura and witho ut status migrainosus, not intractable 09/07/2014 Overview (01/06/2021): Extensive neurological workup in 2014 was negative. Assessment & Plan (02/08/2024 2:55 PM CDT): Stable. Has frovatriptan for p.r.n. use Assessment & Plan (01/21/2022 4:52 AM CDT): She gets migraines around the time of her menstrual cycle. She probably had another one last Monday. She was just coming off her menstrual period, and was having supper at a restaurant with her boyfriend. She then started feeling lightheaded and developed tunnel vision. She may have been hyperventilating. Next thing she knew, she was on the floor. She does not remember the intervening events, but says she was aware of her surroundings and of the comotion, like I was in a big city. The altered state of consciousness lasted about 25 seconds to 1 minute. She did not go to the emergency room on Monday, but the next day she had a bad headache in the midline of her parietal area, a deep pain. She went to the emergency room and received hydrocodone which alleviated her pain. She was sent home with tramadol which she has not needed. In the ER, her pulse rate was slightly low at 47. She says an EKG was done, but there is nothing on file. There is no tracing in the record. We will check with Cardiology. Exam today is normal including neurological exam. I suspect her symptoms are another manifestation of her migraines which were thoroughly evaluated about seven years ago. There is some chronic gliosis from a probable old injury, even intrauterine according to the neurology specialist that saw her. The recent CT in the ER showed the same findings with no overall change. We discussed the option for workup of other possible conditions including epilepsy and cardiac dysrhythmia, but I think these are very unlikely and she is not keen on pursuing any additional testing, even basic blood work such as a CBC. We will monitor clinically. I did give her a trial of Frovatriptan for her menstrual migraines. In the past she has used Imitrex which worked for her. Assessment & Plan (01/23/2021 4:11 PM CDT): She has migraine like headaches about once a month, typically around her menstrual cycle. Sometimes they are caused by stress. She experiences floaters and other visual aura. She gets a headache. A single dose of ibuprofen 800 mg usually takes care of it. She also sometimes sits on the floor and waits it out, as she did recently when her migraine-like symptoms were associated with some paraphrastic and word-finding difficulties. Neurological exam today is negative for any deficits. We discussed possible preventive medications, but she wants to continue the ibuprofen taken as needed. We discussed referral to Neurology. We discussed follow-up imaging. She wants to wait and see how things go. If her migraines get worse or there are new symptoms of concern, she will let me know so we can proceed appropriately. Other viral warts 09/07/2013 Assessment & Plan (09/19/2018 3:35 PM CDT): She has longstanding common warts on the ring and little fingers of her right hand. These have been treated in the past but have persisted. She would like them to be treated again so we will arrange for her to see a tissue coordinator. Overweight with body mass in dex (BMI) of 29 to 29.9 in adult 07/10/2013 Assessment & Plan (03/12/2024 12:58 PM CDT): BMI 27.69. Discussed healthy diet, routine exercise and encourage weight loss Assessment & Plan (02/08/2024 2:54 PM CDT): BMI 27.17. She was counseled on the importance of obtaining a healthy weight and the risks of obesity. Weight loss recommended. Moderate persistent asthma without complication 07/26/2012 Overview (10/14/2016): Asthma Assessment & Plan (02/08/2024 2:54 PM CDT): Continue montelukast. Has albuterol HFA but has not needed it recently. Assessment & Plan (01/03/2023 4:34 PM CDT): Has been using her albuterol inhaler more often each week since July. Did use a old steroid inhaler, patient reports having it lying around at home. After her use she develop thrush on her tongue. She does not remember the name of the steroid inhaler. Assessment & Plan (01/21/2022 4:55 AM CDT): She takes Singulair and has an albuterol inhaler for use as needed. She does not want the Pneumovax or other pneumococcal vaccination. Assessment & Plan (01/06/2021 3:09 PM CDT): She is doing well with albuterol used as needed. Continue same. Assessment & Plan (01/06/2020 2:46 PM CDT): She has an albuterol inhaler for use as needed. Lungs are clear, continue same. Assessment & Plan (09/19/2018 3:34 PM CDT): She occasionally needs to use her inhaler. She also has Singulair. Lungs are clear today. Continue same. 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 Assessment & Plan (01/06/2021 3:14 PM CDT): She has both diarrhea and constipation. Symptoms seem to fluctuate with her mood and also with certain foods like broccoli. She takes Metamucil every day to help regulate her symptoms. There is no blood in the stool. She seems to have other pain issues including diffuse myalgias and rib pain when she first gets up in the morning. These improve as she does some yoga. We discussed additional workup including blood tests or referral to specialists, but she says these are longstanding symptoms that have not changed recently, and that things are fine right now. If she notices worsening over time, she will call for additional testing and possible referral. Assessment & Plan (09/19/2018 3:34 PM CDT): Bowels are doing better since she started taking a fiber supplement. Continue same. Allergic rhinitis 09/08/1999 Overview (10/13/2016): Allergic rhinitis Assessment & Plan (02/08/2024 2:53 PM CDT): History of allergy shots. Takes montelukast daily and uses fluticasone routinely. Was on olopatadine nasal spray with this routinely until she ran out. She would like a refill Assessment & Plan (01/06/2021 3:11 PM CDT): She has Singulair. Continue same. Assessment & Plan (01/06/2020 2:47 PM CDT): She needed a refill of Singulair which we sent in. She denies having any mood problems which are sometimes correlated with Singulair use. Resolved Problems Problem Noted Date Diagnosed Date Resolved Date Encounter for medical exam[facility] to establish care 02/08/2024 03/12/2024 Assessment & Plan (02/08/2024 2:52 PM CDT): Discussed routine healthcare maintenance. Get annual flu shot this fall. Labs ordered. Follow-up as scheduled Screening for diabetes mellitus 02/08/2024 03/12/2024 Screening for lipid disorders 02/08/2024 03/12/2024 Screening for thyroid disorder 02/08/2024 03/12/2024 Oral thrush 01/03/2023 01/16/2023 Assessment & Plan (01/03/2023 4:35 PM CDT): Clinically improved, continue current prescription medications, nystatin suspension, may swish and spit. Patient complained of nausea after swallowing the nystatin suspension. Mild episode of recurrent [place] depressive disorder 08/29/2022 01/03/2023 Assessment & Plan (08/30/2022 11:25 AM HIDE INSPECTOR): Stable. Cont. Current prescription medications. Will temporarily fill Rxs until patient is able to get in to see psychiatry. Go to nearest ER if you feel you may be a harm to yourself or to someone else. Syncope 01/01/2022 08/05/2022 Overview (01/02/2022): See ER note, [facility]. Assessment & Plan (01/07/2022 1:47 PM CDT): She had a possible syncopal episode versus manifestation of her migraine headache, see above for details. For now we are deferring any additional evaluation. Follow-up in six months, or sooner if needed. Rash 01/13/2016 09/18/2018 Overview (09/18/2018): Rash, details lacking. Fatigue 12/09/2015 08/05/2022 Overview (12/02/2016): Fatigue Encephalomalacia 09/07/2014 01/04/2020 Overview (01/04/2020): [facility], details lacking. Malaise and fatigue 09/07/2014 01/04/20 20 Overview (01/04/2020): [facility], details lacking. Magnetic resonance imaging of brain abnormal 5 03/26/2018 Overview (03/26/2018): Abnormal brain MRI, possible AVM, but nothing seen on conventional cerebral angiogram, i.e. false positive MRI. Vertigo 08/22/2014 03/26/2018 Overview (10/13/2016): Vertigo Dizziness and giddiness 08/22/201403/10 Overview (03/26/2018): Syncopal or near syncopal episodes with exercise on two occasions as a teenager. Diabetes insipidus 08/13/2014 8 Overview (03/26/2018): Entered by programming coordinator, details lacking. Appears to be transient if anything. Encephalomalacia 08/11/2014 03/26/2018 Overview (03/26/2018): Entered by programming coordinator. Details lacking. Abdominal pain 06/24/2013 08/07/2018 Overview (10/13/2016): Abdominal pain Depressed mood 03/28/2012 01/06/2020 Overview (01/06/2020): Sadness, resolved. Medical examinations/reports status 03/27/2012 08/07/2018 Overview (10/14/2016): Health care maintenance Reactive airway disease 09/07/200407/11 Overview (10/13/2016): Reactive airway disease Immunizations Immunization Administration Dates Next Due DTP 10/10/2000, 7,04/23/1996,02/20/1996,0 1995 DTaP 5 Pertussis 10/10/2000, 7,04/23/1996,02/20/1996,0 1995 HPV, Quadrivalent 05/17/2013 Hep B Vaccine 04/23/1996,1995,1995 Hep B, Adolescent or Pediatric 04/23/1996,1995,1995 Hib (HbOC) 02/04/1997,04/23/1996,02/20/1996 ,1995 Hib (PRP-OMP) 02/04/1997,04/23/1996,02/20/1996 ,1995 IPV 10/10/2000,04/23/1996,02/20/1996 ,1995 Influenza, Trivalent, IM (MDV) 04/27/2010 Influenza, Unspecified 03/12/2024(Deferr ed: Patient Refused),08/30/2023(Deferred: Patient Refused),04/17/2023(Deferred: Patient Refused),04/17/2023(Deferred: Patient Refused),08/30/2022(Deferred: Patient Refused),08/05/2022(Deferred: Patient Refused) MMR 10/10/2000,10/22/1996 Meningococcal MCV4P (Menactra) 05/17/2013 OPV 04/23/1996,02/20/1996,1995 Tdap 09/19/2018,2006 Varicella 10/22/1996 Social History Tobacco Use Types Packs/Day Years Used Date Smoking Tobacco: Never Cigarettes Smokeless Tobacco: Never Tobacco Cessation:Counseling Given: Not Answered Alcohol Use Standard Drinks/Week Comments Not Currently [...] points, staff should administer the PHQ-9) 0 10/01/2024 Comments No Sex and Gender Information Value Date Recorded Sex Assigned at Not on file Legal Sex Female 7:09 PM HIDE INSPECTOR Gender Identity Female 01/01/2023 9:14 AM CDT Sexual Orientation Not on file Last Filed Vital Signs Vital Sign Reading Time Taken Comments Blood Pressure 122/76 10/01/2024 8:30 AM CDT Pulse 80 09/10/2024 7:34 AM HIDE INSPECTOR Temperature 36.6 C (97.8 F) 09/10/2024 7:34 AM HIDE INSPECTOR Respiratory Rate 16 08/30/2023 8:38 AM HIDE INSPECTOR Oxygen Saturation 99% 09/10/2024 7:34 AM HIDE INSPECTOR Inhaled Oxygen Concentration - - Weight 85.7 kg (189 lb) 10/01/2024 8:30 AM CDT Height 175.3 cm (5' 9 ) 10/01/2024 8:30 AM CDT Body Mass Index 27.91 10/01/2024 8:30 AM CDT Plan of Treatment Not on file Procedures Procedure Name Priority Date/Time Associated Diagnosis Comments PAP, REFLEX HPV Routine 10/01/2024 8:52 AM CDT Well woman exam HEPATITIS C ANTIBODY Routine 08/29/2022 1:40 PM HIDE INSPECTOR Annual physical exam Encounter for hepatitis C screening test for low risk patient from Last 3 Months or Most Recently Relevant to Health Maintenance Results * Pap, reflex HPV (10/01/2024 8:52 AM CDT) Clinical indication Comment [facility] - 01 Comment: NEGATIVE FOR INTRAEPITHELIAL LESION OR MALIGNANCY. THIS SPECIMEN WAS RESCREENED PART OF OUR FAUCET POLISHER PROGRAM. Specimen adequacy: Comment [facility] - 01 Comment: Satisfactory for evaluation. Endocervical and/or squamous metaplastic cells (endocervical component) are present. Clinician provided ICD10 Comment [facility] - 01 Comment:Z01.419 Performed by Comment LAB MT 02 Comment:Suyapa Gudino, Cyto technologist (ASCP) QC reviewed by Comment [facility] - 01 Comment:Maddy Maher, Cytot echnologist (ASCP) . . [facility] - 01 Note: Comment [facility] - 01 Comment: The Pap smear is a screening test designed to aid in the detection of premalignant and malignant conditions of the uterine cervix. It is not a diagnostic procedure and should not be used as the sole means of detecting cervical cancer. Both false-positive and false-negative reports do occur. Test methodology Comment [facility] - 01 Comment: This liquid based ThinPrep(R) pap test was screened with the use of an image guided system. . Comment [facility] - 01 Comment: The HPV DNA reflex criteria were not met with this specimen result therefore, no HPV testing was performed. Thin prep 10/01/2024 8:52 AM CDT 10/01/2024 Narrative [facility] - 10/08/2024 5:10 PM CDT Performed at: - [address] [id number] Systems Trainer: Agata Felix MD, Phone: [phone] [facility]formed at: [facility] [address] [place], [place] [id number] Systems Trainer: Steven Hubbard MD, Phone: [phone] Specimen Comment: [id number] Specimen Comment: No. of containers..01 ThinPrep Vial us Martir Foster MD LAB CYTOLOGY ORDERABLES Fi nal Result [facility] - 01 LAB MT 02 * Hepatitis C antibody (08/29/2022 1:40 PM HIDE INSPECTOR) Hep C Ab Nonreactive Nonreactive [facility] ([place]) Comment: Interpretive Data Nonreactive: Antibodies to HCV not detected. Does NOT exclude the possibility of recent exposure to HCV. Equivocal: Equivocal for HCV antibodies. Supplemental molecular testing will be automatically performed to determine infection status in accordance with current CDC screening recommendations. Reactive: Positive for HCV antibodies. This may represent current or past HCV infection. Supplemental molecular testing will be automatically performed to determine current infection status in accordance with current CDC screening recommendations. Interpretive data was last revised on 2019. Testing performed by: [facility], [address] [place] [address]., [id number] Blood 08/29/2022 1:40 PM HIDE INSPECTOR 08/29/2022 7:36 PM HIDE INSPECTOR us Elisa Aly DO LAB MICROBIOLOGY - GENERAL ORDERABLES Edited Result - Final Performing Organization Address City/[facility]/ZIP Co de Phone Number JOEL AGU[facility] ([place]) [address] [facility] Department [place] [address] from Last 3 Months or Most Recently Relevant to Health Maintenance Insurance [facility] OPEN ACCESS [facility] [employer] Care Teams Refrigerated Cargo Clerk Relationship Specialty Start Date End Date Lucy Chappell NP [address] [address] PCP - General Family Medicine 02/08/24 Martir Foster MD [address] [facility] [place] [address] Clerk Typist Obstetrics and Gynecology 01/08/20
--- OUTSIDE RECORDS SUMMARY | 2024-11-15 09:28 | XMS_ITS | Clinical Summary ---
Author Organization [facility] Medical Office Building B Address [address] [place] [address] Care Team Providers Care Deputy Sheriff Civil Division Name Role Phone Martir Foster MD Unavailable [phone] Lucy Chappell NP Primary Care Provider [phone] Allergies Active Allergy Reactions Criticality Noted Date [...] monitor. Assessment & Plan (08/30/2022 11:24 AM CARROT TIER): Stable. Cont. Current prescription medications. Will temporarily [...] techniques Assessment & Plan (08/30/2023 10:06 AM CARROT TIER): Had a few episodes of syncope last [...] discussed Assessment & Plan (08/30/2022 11:24 AM CARROT TIER): Stable. Cont. Current prescription medications. Will temporarily fill Rxs until patient is able to get in to see psychiatry. Assessment & Plan (08/07/2022 11:31 AM CARROT TIER): Trial of Lexapro 10 mg every day. [...] re-evaluation Assessment & Plan (08/30/2023 10:07 AM CARROT TIER): Parish. Cont psychotherapy. Assessment & Plan (08/07/2022 11:32 AM CARROT TIER): Trial of Lexapro 10 mg every day. [...] Assessment & Plan (02/08/2024 2:55 PM CDT): Parish. Has frovatriptan for p.r.n. use Assessment & [...] will arrange for her to see a national van owner operator. Overweight with body mass in dex (BMI) [...] Date Resolved Date Encounter for medical examin lina to establish care 02/08/2024 03/12/2024 Assessment & [...] 01/03/2023 Assessment & Plan (08/30/2022 11:25 AM CARROT TIER): Stable. Cont. Current prescription medications. Will temporarily [...] (12/02/2016): Fatigue Encephalomalacia 09/07/2014 01/04/2020 Overview (01/04/2020): [facility], details lacking. Malaise and fatigue 09/07/2014 01/04/20 20 Overview (01/04/2020): [facility], details lacking. Magnetic resonance imaging of brain abnormal 5 03/26/2018 Overview (03/26/2018): Abnormal brain MRI, possible AVM, but nothing seen on conventional cerebral angiogram, i.e. false positive MRI. Vertigo 08/22/2014 03/26/2018 Overview (10/13/2016): Vertigo Dizziness and giddiness 08/22/201403/10 Overview (03/26/2018): Syncopal or near syncopal episodes with exercise on two occasions as a teenager. Diabetes insipidus 08/13/2014 8 Overview (03/26/2018): Entered by sustainable products marketing manager, details lacking. Appears to be transient if anything. Encephalomalacia 08/11/2014 03/26/2018 Overview (03/26/2018): Entered by sustainable products marketing manager. Details lacking. Abdominal pain 06/24/2013 08/07/2018 Overview (10/13/2016): Abdominal pain Depressed mood 03/28/2012 01/06/2020 Overview (01/06/2020): Sadness, resolved. Medical examinations/reports status 03/27/2012 08/07/2018 Overview (10/14/2016): Health care maintenance Reactive airway disease 09/07/200407/11 Overview (10/13/2016): Reactive airway disease Encounters Date Type Department Care Team Description 10/09/2024 Results Follow-Up Mariejeff Smith [address] [place] [address] [address] [place] [phone] Martir Foster MD 10/01/2024 8:30 AM CDT Office Visit Mariejeff Smith [address] [place] [address] [address] [place] [phone] Martir Foster MD Well woman exam (Primary Dx); Persistent depressive disorder 09/10/2024 7:30 AM CARROT TIER Office Visit [facility] Primary Care at [address] [place] [address] Lucy Chappell NP Allergic rhinitis, unspecified seasonality, unspecified trigger (Primary Dx); Moderate persistent asthma without complication; Moderate episode of recurrent major depressive disorder (HCC); Generalized anxiety disorder; Overweight with body mass index (BMI) of 29 to 29.9 in adult from Last 3 Months Immunizations Immunization Administration Dates Next Due DTP [...] 05/17/2013 OPV 04/23/1996,02/20/1996,1995 Tdap 09/19/2018,2006 Varicella 10/22/1996 Surgical History Surgery Date Site/Laterality Comments DEBRIDEMENT LEG 07/10/2001 - 07/09/2002 Leg wound: debridement, details lacking CEREBRAL ANGIOGRAM 07/10/2016 - 07/09/2017 Medical History Medical History Date Comments Asthma Asthma Encephalomalacia 08/11/2014 States area of brain missing; hx of head injury falling on concrete. See MRI brain report, interpreted by neurology consult as area of possible old (intrauterine) injury or infarction. Diabetes insipidus 08/13/2014 Entered by pe diatrician, details lacking. Appears to be transient if anything. Vertigo 08/22/2014 Vertigo Magnetic resonance imaging o f brain abnormal 08/29/2014 Abnormal brain MRI, possible AVM, but nothing seen on conventional cerebral angiogram, i.e. false positive MRI. Dizziness and giddiness 08/22/2014 Syncopal or near syncopal episodes with exercise on two occasions as a teenager. Medical examinations/reports status 03/27/2012 Health care maintenance Abdominal pain 06/24/2013 Evaluated for ul cer, irritable bowel syndrome. Reactive airway disease 09/07/2004 Reactive airway disease H/O open leg wound 2001 Details emilianai ng. Irritable bowel 2000 Childhood varian t, details lacking. Dizziness 2014 Dizziness, heada ches, CT head and angiograms performed. Allergic rhinitis Allergic rhini tis, exercise-induced asthma Rash 01/13/2016 Rash, details la cking. Encephalomalacia 09/07/2014 [facility], details lacking. Malaise and fatigue 09/07/2014 [facility], details lacking. Chicken pox 2001 Details lacking, despite getting vaccine? Depressed mood 03/28/2012 Sadness, resolve d. Headache 09/07/2014 [facility], details lacking. Migraine with aura. Anemia Anxiety Depression Migraines Family History Medical History Relation Name Comments Arthritis Father Dad Depression Father Dad Hypertension Father Dad Hypertension; Other Father Dad Inflammatory ar htritis, unknown type; Hypertension Maternal Grandmother Hyperte nsion; Kidney cancer Maternal Grandmother Allergy (severe) Mother Mom Anemia Mother Mom Asthma Mother Mom Asthma; Gastroesophageal Reflux Disease Mother Mom GERD; Hypertension Mother Mom Hypertension; Kidney disease Mother Mom Coronary artery disease Paternal Grandfather Coronary artery disease; Hypertension Paternal Grandfather Hyperte nsion; Coronary artery disease Paternal Grandmother Coronary artery disease; Hypertension Paternal Grandmother Hyperte nsion; Relation Name Status Comments Father Dad Maternal Grandmother Mother Mom Paternal Grandfather Paternal Grandmother Social History Tobacco Use Types Packs/Day Years [...] on file Legal Sex Female 7:09 PM CARROT TIER Gender Identity Female 01/01/2023 9:14 AM CDT Sexual Orientation Not on file Obstetrics History Para Term AB IAB SAB Ectopic Multiple Livin g Live Births 0 0 0 0 0 0 0 0 0 0 0 Last Filed Vital Signs Vital Sign Reading Time Taken Comments Blood Pressure 122/76 10/01/2024 8:30 AM CDT Pulse 80 09/10/2024 7:34 AM CARROT TIER Temperature 36.6 C (97.8 F) 09/10/2024 7:34 AM CARROT TIER Respiratory Rate 16 08/30/2023 8:38 AM CARROT TIER Oxygen Saturation 99% 09/10/2024 7:34 AM CARROT TIER Inhaled Oxygen Concentration - - Weight 85.7 kg (189 lb) 10/01/2024 8:30 AM CDT Height 175.3 cm (5' 9 ) 10/01/2024 8:30 AM CDT Body Mass Index 27.91 10/01/2024 8:30 AM CDT Plan of Treatment Health Maintenance Due Date Last Done Comments Pneumococcal vaccine <65 (1 of 2 - PCV) 01/20/2025 Postponed from 10/19/2014 (Patient declined, but will receive in the future) Influenza Vaccine (Season Ended) 2025 04/27/2010 Covid-19 Vaccine ( - season) 2025 02/20/2021, 01/30/2021 Postponed from 03/10/2024 (Patient declined, but will receive in the future) Depression Screening 10/01/2025 10/01/2024, 02/08/2024, 09/05/2023, Additional history exists Regular Well Visit/Exam 18-64 10/01/2025 10/01/2024, 02/08/2024, 09/05/2023, Additional history exists DTaP/Tdap/Td Vaccine (8 - Td or Tdap) 09/19/2028 09/19/2018, 2006, 10/10/2000, Additional history exists Cervical Cancer Screening 10/01/20292024, 09/05/2023, 08/29/2022, Additional history exists Hepatitis B Screening Completed 04/23/1996 , 04/23/1996, 1995, Additional history exists HPV Vaccines Discontinued 05/17/2013 Hepatitis C Screening Completed 08/29/2022 Procedures Procedure Name Priority Date/Time Associated Diagnosis Comments PAP, REFLEX HPV Routine 10/01/2024 8:52 AM CDT Well woman exam HEPATITIS C ANTIBODY Routine 08/29/2022 1:40 PM CARROT TIER Annual physical exam Encounter for hepatitis C screening test for low risk patient from Last 3 Months or Most Recently Relevant to Health Maintenance Results * Pap, reflex HPV (10/01/2024 8:52 AM CDT) Clinical indication Comment [facility] - 01 Comment: NEGATIVE FOR INTRAEPITHELIAL LESION OR MALIGNANCY. THIS SPECIMEN WAS RESCREENED PART OF OUR VP INTEGRITY PROGRAM. Specimen adequacy: Comment [facility] - 01 Comment: Satisfactory for evaluation. Endocervical and/or squamous metaplastic cells (endocervical component) are present. Clinician provided ICD10 Comment [facility] - 01 Comment:Z01.419 Performed by Comment LAB MT 02 Comment:Suyapa Gudino, Cyto technologist (ASC) QC reviewed by Comment [facility] - 01 Comment:Maddy Maher, Cytot echnologist ([facility]) . . [facility] - 01 Note: Comment [...] 10/08/2024 5:10 PM CDT Performed at: - Lab[address] [id number] Superintendent Power: Agata Felix MD, Phone: [phone] [facility]formed at: [facility] [address] [place] [id number] Superintendent Power: Steven Hubbard MD, Phone: [phone] Specimen Comment: [id number] Specimen Comment: No. of containers..01 ThinPrep Vial Martir Foster MD LAB CYTOLOGY ORDERABLES Fi nal [facility] - 01 LAB MT 02 * Hepatitis C antibody (08/29/2022 1:40 PM CARROT TIER) Hep C Ab Nonreactive Nonreactive [facility] (MARIE) Comment: Interpretive Data Nonreactive: Antibodies to HCV [...] last revised on 2019. Testing performed by: [facility], [address] [place] [address], [place]., [address] Blood 08/29/2022 1:40 PM CARROT TIER 08/29/2022 7:36 PM CARROT TIER us Elisa Aly DO LAB MICROBIOLOGY - GENERAL ORDERABLES Edited Result - Final [facility] ([place]) 1 [facility] Department [place] [address] from Last 3 Months or Most Recently Relevant to Health Maintenance Insurance [facility] CHOICE PLUS [employer] [facility] [facility] OPEN ACCESS [facility] CHOICE PLUS [facility] CHOICE PLUS Care Teams Deputy Sheriff Civil Division Relationship Specialty Start Date End Date Lucy Chappell NP [address] [place] [address] PCP - General Family Medicine 02/08/24 Martir Foster MD [address] [place] [address] [address] [address] Supervisor Coffee Obstetrics and Gynecology 01/08/20
--- OUTSIDE RECORDS SUMMARY | 2024-11-15 09:28 | XMS_ITS | Encounter Summary ---
Author Organization [facility] Healthcare Address [address] [place] [address] Care Team Providers Care Can Reforming Machine Operator Name Role Phone Martir Foster MD Unavailable Lucy Chappell NP Primary Care Provider [phone] Encounter Details Date Type Department Care Team (Late st Contact Info) Description 10/09/2024 Results Follow-Up [facility] [address] [phone] Martir Foster MD [address] [place] [address] [address] [place] [address] Social History Tobacco Use Types Packs/Day Years [...] on file Legal Sex Female 7:09 PM FERMENTER Gender Identity Female 01/01/2023 9:14 AM CDT Sexual Orientation Not on file documented as of this encounter Plan of Treatment Not on file documented as of this encounter Visit Diagnoses Not on filedocumented in this encounter Care Teams Can Reforming Machine Operator Relationship Specialty Start Date End Date Lucy Chappell NP [address] [place] [address] PCP - General Family Medicine 02/08/24 Martir Foster MD [address] [facility] [address] [place] [address] Hide Examiner Obstetrics and Gynecology 01/08/20 documented as of this encounter
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
== END 2024-11-15 09:41 | disposition home or self-care (01) ==
PROVIDERS: Emergency Provider Nurse Practitioner; PCP Nurse Practitioner
DX: H60.91 Unspecified otitis externa, right ear (principal)
CPT/HCPCS: 99213; G0463

== ENCOUNTER 2024-12-17 18:11 | Emergency (ER) | payer OTHER, SELFPAY ==
--- OUTSIDE RECORDS SUMMARY | 2024-12-17 18:13 | XMS_ITS | Clinical Summary ---
Author Organization [facility] Medical Office Building B Address [address] [place] [address] Care Team Providers Care Form Raiser Name Role Phone Martir Foster MD Unavailable [phone] Lucy Chappell NP Primary Care Provider Allergies Active Allergy Reactions Criticality Noted Date [...] monitor. Assessment & Plan (08/30/2022 11:24 AM CURING FINISHER): Stable. Cont. Current prescription medications. Will temporarily [...] techniques Assessment & Plan (08/30/2023 10:06 AM CURING FINISHER): Had a few episodes of syncope last [...] discussed Assessment & Plan (08/30/2022 11:24 AM CURING FINISHER): Stable. Cont. Current prescription medications. Will temporarily fill Rxs until patient is able to get in to see psychiatry. Assessment & Plan (08/07/2022 11:31 AM CURING FINISHER): Trial of Lexapro 10 mg every day. [...] re-evaluation Assessment & Plan (08/30/2023 10:07 AM CURING FINISHER): Parish. Cont psychotherapy. Assessment & Plan (08/07/2022 11:32 AM CURING FINISHER): Trial of Lexapro 10 mg every day. [...] will arrange for her to see a catalogue and special products manager. Overweight with body mass in dex (BMI) [...] 01/03/2023 Assessment & Plan (08/30/2022 11:25 AM CURING FINISHER): Stable. Cont. Current prescription medications. Will temporarily [...] (12/02/2016): Fatigue Encephalomalacia 09/07/2014 01/04/2020 Overview (01/04/2020): [facility], details lacking. Malaise and fatigue 09/07/2014 01/04/20 20 Overview (01/04/2020): [facility], details lacking. Magnetic resonance imaging of brain abnormal 5 03/26/2018 Overview (03/26/2018): Abnormal brain MRI, possible AVM, but nothing seen on conventional cerebral angiogram, i.e. false positive MRI. Vertigo 08/22/2014 03/26/2018 Overview (10/13/2016): Vertigo Dizziness and giddiness 08/22/201403/10 Overview (03/26/2018): Syncopal or near syncopal episodes with exercise on two occasions as a teenager. 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 Appears to be transient if anything. Encephalomalacia 08/11/2014 03/26/2018 Overview (03/26/2018): Entered by marriage and family counselor. Details lacking. Abdominal pain 06/24/2013 08/07/2018 Overview (10/13/2016): Abdominal pain Depressed mood 03/28/2012 01/06/2020 Overview (01/06/2020): Sadness, resolved. Medical examinations/reports status 03/27/2012 08/07/2018 Overview (10/14/2016): Health care maintenance Reactive airway disease 09/07/200407/11 Overview (10/13/2016): Reactive airway disease Encounters Date Type Department Care Team Description 10/09/2024 Results Follow-Up [place] [facility] [address] [facility] [address] [place] [address] Martir Foster MD Pap, reflex HPV 10/01/2024 8:30 AM CDT Office Visit Mariejeff Smith [address] [facility] [address] [place] [address] Martir Foster MD Well woman exam (Primary Dx); Persistent depressive disorder from Last 3 Months Immunizations Immunization Administration [...] or infarction. Diabetes insipidus 08/13/2014 Entered by anuel diatrician, details lacking. Appears to be transient [...] disease H/O open leg wound 2001 Details terrell edgar. Irritable bowel 2000 Childhood varian t, details lacking. Dizziness 2014 Dizziness, heada ches, CT head and angiograms performed. Allergic rhinitis Allergic rhini tis, exercise-induced asthma Rash 01/13/2016 Rash, details la cking. Encephalomalacia 09/07/2014 [facility], details lacking. Malaise and fatigue 09/07/2014 [facility], details lacking. Chicken pox 2001 Details lacking, despite getting vaccine? Depressed mood 03/28/2012 Sadness, resolve d. Headache 09/07/2014 [facility], details lacking. Migraine with aura. Anemia Anxiety [...] on file Legal Sex Female 7:09 PM CURING FINISHER Gender Identity Female 01/01/2023 9:14 AM CDT Sexual Orientation Not on file Obstetrics History Para Term AB IAB SAB Ectopic Multiple Livin g Live Births 0 0 0 0 0 0 0 0 0 0 0 Last Filed Vital Signs Vital Sign Reading Time Taken Comments Blood Pressure 122/76 10/01/2024 8:30 AM CDT Pulse 80 09/10/2024 7:34 AM CURING FINISHER Temperature 36.6 C (97.8 F) 09/10/2024 7:34 AM CURING FINISHER Respiratory Rate 16 08/30/2023 8:38 AM CURING FINISHER Oxygen Saturation 99% 09/10/2024 7:34 AM CURING FINISHER Inhaled Oxygen Concentration - - Weight 85.7 kg (189 lb) 10/01/2024 8:30 AM CDT Height 175.3 cm (5' 9) 10/01/2024 8:30 AM CDT Body Mass Index 27.91 10/01/2024 8:30 AM CDT Plan of Treatment Health Maintenance Due Date Last Done Comments Pneumococcal vaccine <65 (1 of 2 - PCV) 01/20/2025 Postponed from 10/19/2014 (Patient declined, but will receive in the future) Influenza Vaccine (Season Ended) 2025 04/27/2010 Covid-19 Vaccine ( season) 2025 02/20/2021, 01/30/2021 Postponed from 03/10/2024 [...] HEPATITIS C ANTIBODY Routine 08/29/2022 1:40 PM CURING FINISHER Annual physical exam Encounter for hepatitis C screening test for low risk patient from Last 3 Months or Most Recently Relevant to Health Maintenance Results * Pap, reflex HPV (10/01/2024 8:52 AM CDT) Clinical indication Comment [facility] - 01 Comment: NEGATIVE FOR INTRAEPITHELIAL LESION OR MALIGNANCY. THIS SPECIMEN WAS RESCREENED PART OF OUR REHABILITATION WORKER PROGRAM. Specimen adequacy: Comment [facility] - 01 [...] - 10/08/2024 5:10 PM CDT Performed at: [address] [id number] Dive Supervisor: Agata Felix MD, Phone: [phone] Performed at: - [facility] Cyto Histo [id number] [place] [id number] Dive Supervisor: Steven Hubbard MD, Phone: [phone] Specimen Comment: [id number] Specimen Comment: No. of containers..01 ThinPrep Vial us Martir Foster MD LAB CYTOLOGY ORDERABLES Fi nal Result [facility] - 01 LAB MT 02 * Hepatitis C antibody (08/29/2022 1:40 PM CURING FINISHER) Hep C Ab Nonreactive Nonreactive JOEL AGUILAR [...] last revised on 2019. Testing performed by: [facility], [address] [place] [address], [place]., [address] Blood 08/29/2022 1:40 PM CURING FINISHER 08/29/2022 7:36 PM CURING FINISHER us Elisa Aly DO LAB MICROBIOLOGY - GENERAL ORDERABLES Edited Result - Final [facility] ([place]) 1 [facility] [employer] [place] [id number] from Last 3 Months or Most Recently Relevant to Health Maintenance [place] [address] [facility] CHO[facility] PLUS [facility] HMO/PPO Address: [address] [address] [place] [address] [facility] [place] [address] [employer] OPEN ACCESS [facility] CHO[facility]US [facility] HMO/PPO Address: [address] [address] [place] [address] * Guarantor: Harper Lawrence Account Type Relation to Patient Date of Phone Billing Address Personal/Family Self [address] [place] [phone] [facility] HMO/PPO Address: [address] [address] [place] [address] Care Teams Form Raiser Relationship Specialty Start Date End Date Lucy Chappell NP [address] [facility] [address] [place] [address] PCP - General Family Medicine 02/08/24 Martir Foster MD [address] [facility] [facility] [address] [address] [place] [id number] Bead Builder Obstetrics and Gynecology 01/08/20
--- OUTSIDE RECORDS SUMMARY | 2024-12-17 18:13 | XMS_ITS | Clinical Summary ---
Author Organization [facility] Address [address] [place] [address] Phone Care Team Providers Care Plate Drying Machine Tender Name Role Phone Domingo Murcia MD Primary Care Provider [phone] Immunizations Immunization Administration Dates Next Due Covid-19, [...] Comments Hepatitis C Virus (HCV) Screening 1995 Human Papillomavirus (HPV) Immunization (2 - 3-dose series) 06/14/2013 05/17/2013 SARS-COV-2 Immunization (3 - season) 2024 02/20/2021, 01/30/2021 Influenza Immunization (Season Ended) 2025 04/27/2010 DTaP/Tdap/Td Immunization (8 - Td or Tdap) 09/19/2028 09/19/2018, 2006, 10/10/2000, Additional history exists Respiratory Syncytial Virus (RSV) Immunization (Adult) (1 - 1-dose 75+ series) 10/19/2070 Hepatitis B Immunization Completed 996, 1995, 1995 Meningococcal Immunization (ACWY) Completed 05/17/2013 Pneumococcal Immunization Combined Aged Out No longer eligible based on patient's age to complete this topic Rotavirus Immunization Aged Out No lo nger eligible based on patient's age to complete this topic Insurance [address] [facility] Care Teams Plate Drying Machine Tender Relationship Specialty Start Date End Date Domingo Murcia MD [address], [address] [place] [address] PCP - General Infectious Disease 03/08/17
--- OUTSIDE RECORDS SUMMARY | 2024-12-17 18:13 | XMS_ITS | Encounter Summary ---
Author Organization [facility] Healthcare Address [address] [place] [address] Care Team Providers Care Heel Seat Pounder Name Role Phone Martir Foster MD Unavailable [phone] Lucy Chappell NP Primary Care Provider Encounter Details Date Type Department Care Team (Late st Contact Info) Description 03/19/2024 Telephone [facility] Medical Group Primary Care at [address] [place] [address] Lucy Chappell APPAREL FASHION DESIGNER [address] [place] [address] [address] [place] [address] Social History Tobacco Use Types [...] on file Legal Sex Female 7:09 PM CUTTING AND BONING SUPERVISOR Gender Identity Female 01/01/2023 9:14 AM CDT Sexual Orientation Not on file documented as of this encounter Plan of Treatment Not on file documented as of this encounter Visit Diagnoses Not on filedocumented in this encounter Care Teams Heel Seat Pounder Relationship Specialty Start Date End Date Lucy Chappell NP [address] [place] [address] PCP - General Family Medicine 02/08/24 Martir Foster MD [address] [facility] [facility] [address] [place] [address] Nailhead Setter Obstetrics and Gynecology 01/08/20 documented as of this encounter
--- OUTSIDE RECORDS SUMMARY | 2024-12-17 18:13 | XMS_ITS | Referral Summary ---
Author Organization [facility] Medical Office Building B Address [address] [place] [address] Care Team Providers Care Nematologist Name Role Phone Martir Foster MD Unavailable [phone] Lucy Chappell NP Primary Care Provider [phone] Encounters Date Type Department Care Team Description 10/09/2024 Results Follow-Up Mariejeff MIGUEL [address] [place] [address] Martir Foster MD Pap, reflex HPV 10/01/2024 8:30 AM CDT Office Visit [place] MIGUEL [address] [place] [address] Martir Foster MD Well woman exam (Primary Dx); Persistent depressive disorder from Last 3 Months Allergies Active Allergy [...] monitor. Assessment & Plan (08/30/2022 11:24 AM ALMOND BLANCHER HAND): Stable. Cont. Current prescription medications. Will temporarily [...] techniques Assessment & Plan (08/30/2023 10:06 AM ALMOND BLANCHER HAND): Had a few episodes of syncope last [...] discussed Assessment & Plan (08/30/2022 11:24 AM ALMOND BLANCHER HAND): Stable. Cont. Current prescription medications. Will temporarily fill Rxs until patient is able to get in to see psychiatry. Assessment & Plan (08/07/2022 11:31 AM ALMOND BLANCHER HAND): Trial of Lexapro 10 mg every day. [...] re-evaluation Assessment & Plan (08/30/2023 10:07 AM ALMOND BLANCHER HAND): Parish. Cont psychotherapy. Assessment & Plan (08/07/2022 11:32 AM ALMOND BLANCHER HAND): Trial of Lexapro 10 mg every day. [...] will arrange for her to see a blogs manager. Overweight with body mass in dex [...] 01/03/2023 Assessment & Plan (08/30/2022 11:25 AM ALMOND BLANCHER HAND): Stable. Cont. Current prescription medications. Will temporarily [...] 09/07/2014 01/04/2020 Overview (01/04/2020): [facility], details lacking. Malaise and fatigue 09/07/2014 01/04/20 20 Overview (01/04/2020): [facility], details lacking. Magnetic resonance imaging of brain abnormal 5 03/26/2018 Overview (03/26/2018): Abnormal brain MRI, possible AVM, but nothing seen on conventional cerebral angiogram, i.e. false positive MRI. Vertigo 08/22/2014 03/26/2018 Overview (10/13/2016): Vertigo Dizziness and giddiness 08/22/201403/10 Overview (03/26/2018): Syncopal or near syncopal episodes with exercise on two occasions as a teenager. 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 Appears to be transient if anything. Encephalomalacia 08/11/2014 03/26/2018 Overview (03/26/2018): Entered by glass vial filler. Details lacking. Abdominal pain 06/24/2013 08/07/2018 Overview [...] on file Legal Sex Female 7:09 PM ALMOND BLANCHER HAND Gender Identity Female 01/01/2023 9:14 AM CDT Sexual Orientation Not on file Last Filed Vital Signs Vital Sign Reading Time Taken Comments Blood Pressure 122/76 10/01/2024 8:30 AM CDT Pulse 80 09/10/2024 7:34 AM ALMOND BLANCHER HAND Temperature 36.6 C (97.8 F) 09/10/2024 7:34 AM ALMOND BLANCHER HAND Respiratory Rate 16 08/30/2023 8:38 AM ALMOND BLANCHER HAND Oxygen Saturation 99% 09/10/2024 7:34 AM ALMOND BLANCHER HAND Inhaled Oxygen Concentration - - Weight 85.7 kg (189 lb) 10/01/2024 8:30 AM CDT Height 175.3 cm (5' 9) 10/01/2024 8:30 AM CDT Body Mass Index 27.91 10/01/2024 8:30 AM CDT Plan of Treatment Not on file Procedures Procedure Name Priority Date/Time Associated Diagnosis Comments PAP, REFLEX HPV Routine 10/01/2024 8:52 AM CDT Well woman exam HEPATITIS C ANTIBODY Routine 08/29/2022 1:40 PM ALMOND BLANCHER HAND Annual physical exam Encounter for hepatitis C screening test for low risk patient from Last 3 Months or Most Recently Relevant to Health Maintenance Results * Pap, reflex HPV (10/01/2024 8:52 AM CDT) Clinical indication Comment [facility] - 01 Comment: NEGATIVE FOR INTRAEPITHELIAL LESION OR MALIGNANCY. THIS SPECIMEN WAS RESCREENED PART OF OUR ARC CUTTER PROGRAM. Specimen adequacy: Comment [facility] - 01 Comment: Satisfactory for evaluation. Endocervical and/or squamous metaplastic cells (endocervical component) are present. Clinician provided ICD10 Comment [facility] - 01 Comment:Z01.419 Performed by Comment LAB MT 02 Comment:Suyapa Gudino, Cyto technologist (ASCP) QC reviewed by Comment [facility] - 01 Comment:Maddy Maher, Cytot echnologist (ASC) . . [facility] - 01 Note: Comment [...] 10/08/2024 5:10 PM CDT Performed at: - [address] [id number] Case Monitor: Agata Felix MD, Phone: [phone] [facility]formed at: - [facility] [address] [place] [id number] Case Monitor: Steven Hubbard MD, Phone: [phone] Specimen Comment: [id number] Specimen Comment: No. of containers..01 ThinPrep Vial us Martir Foster MD LAB CYTOLOGY ORDERABLES Fi nal Result [facility] - LAB MT 02 * Hepatitis C antibody (08/29/2022 1:40 PM ALMOND BLANCHER HAND) Hep C Ab Nonreactive Nonreactive JOEL AGUILAR [...] last revised on 2019. Testing performed by: [facility], [address] [place] [address], [place]., [address] Blood 08/29/2022 1:40 PM ALMOND BLANCHER HAND 08/29/2022 7:36 PM ALMOND BLANCHER HAND us Elisa Aly DO LAB MICROBIOLOGY - GENERAL ORDERABLES Edited Result - Final [facility] ([place]) 1 [facility] [place] [address] from Last 3 Months or Most Recently Relevant to Health Maintenance Insurance [facility] HMO/PPO Address: [facility] [address] [place] [address] [facility] [employer] OPEN ACCESS [facility] CHOICE [facility]US [facility] HMO/PPO Address: [address] [address] [place] [address] [facility] CHO[facility] HMO/PPO Address: [facility] [address] [place] [address] Care Teams Nematologist Relationship Specialty Start Date End Date Lucy Chappell NP [address] [place] [address] PCP - General Family Medicine 02/08/24 Martir Foster MD [address] [facility] [address] [place] [id number] Emergency Communications Dispatcher Obstetrics and Gynecology 01/08/20
[2024-12-17 18:16] VITALS: BP 142/72; PULSE 73; RESP 20; TEMP 36.9; O2SAT 100
--- NOTE | 2024-12-17 18:24 | ED.SKABFB ---
HPI - Skin/Abscess/Foreign Bdy General Chief complaint: Skin/Abscess/Foreign Body Stated complaint: Poison Dora Time Seen by Provider: 12/17/24 18:24 Source: patient Mode of arrival: ambulatory Limitations: no limitations History of Present Illness HPI narrative: 29 y/o female presented for c/o rash to arms and legs. States she has poison carmelina. Endorses the rash has spread from where it started as a few small red bumps to the left forearm 4 days ago. Rash started after pulling weeds. Used calamine wipes without relief. Currently has Lye soap paste on the sites. Denies lip, tongue, or throat swelling, shortness of breath or wheezing. Denies changes to soap, detergent, lotion, or any other exposures. No one else in the house or any contacts with similar symptoms. Related Data Home Medications ?Medication ?Instructions ?Recorded ?Confirmed ?Last Taken ?Type norgestimate 0.25 mg-ethinyl 1 tablet PO DAILY 12/21/23 12/21/23 Unknown History estradiol 0.035 mg tablet (Sprintec (28)) bupropion HCl 300 mg 24 hr tablet, mg PO 11/15/24 Unknown History extended release buspirone 10 mg tablet mg 12/17/24 Unknown History Allergies Allergy/AdvReac Type Severity Reaction Status Date / Time codeine Allergy Intermediate Hyperactive Verified 12/17/24 18:20 latex Allergy Mild Rash Verified 12/17/24 18:20 Penicillins Allergy Mild Rash Verified 12/17/24 18:20 Review of Systems Review of Systems: CONSTITUTIONAL: Denies body aches, fever, chills, or sweats. EYES: Denies visual changes, redness, or discharge. ENT: Denies rhinorrhea, congestion CARDIOVASCULAR: Denies chest pain, palpitations, or edema. RESPIRATORY: Denies cough or dyspnea. GASTROINTESTINAL: Denies abdominal pain, nausea, vomiting, or diarrhea. SKIN: per HPI MUSCULOSKELETAL: Denies back pain, joint pain, or myalgia. NEUROLOGIC: Denies headache, numbness, tingling, or weakness. [facility] Past Medical History Medical History (Updated 12/17/24 @ 18:32 by Ann Marie Skelton APRN) Anxiety and depression Anemia Gangrene left lower leg age 6 related to injury MRSA infection Cellulitis of left leg Surgical History Surgical History No pertinent past surgical history Family History Family History Mother No pertinent family history Social History Social History Smoking status: Never smoker Alcohol intake: current Alcohol use details: social Substance use: never Gender identity (if verbalized by the patient): Female Sexual Orientation (if Verbalized by the Patient): Straight or Heterosexual Spiritual care concerns: No Comments At time of signature, I have reviewed and agree with nursing past medical, surgical, social and family history unless otherwise noted. Please see nursing chart for further information. There is no relevant family history pertinent to the presenting complaint Exam Narrative: GENERAL: Well-appearing HEAD: Normocephalic, atraumatic. EYES: conjunctivae clear, and EOMI. ENT: Mucous membranes moist. Oropharynx without edema, erythema or lesions. NECK: Supple. No lymphadenopathy CHEST: Clear to auscultation. HEART: Regular rate and rhythm. SKIN: Warm, dry. scattered areas of vesicles on erythematous base noted to bilateral upper and lower extremities. Consistent with contact dermatitis. NEURO: Alert and oriented x3. Course Course Emergency Course: Patient is aware of diagnosis, understands and agrees to treatment plan. Anticipatory guidance given. Patient agrees to follow-up as directed and is aware of reasons to seek care at the emergency department. Portions of this record may have been created with voice recognition software Level of Care: Express Care Visit Vital Signs Vital signs: Vital Signs Temperature 98.4 F 12/17/24 18:16 Pulse Rate 73 12/17/24 18:16 Respiratory Rate 20 12/17/24 18:16 Blood Pressure 142/72 H 12/17/24 18:16 Pulse Oximetry 100 12/17/24 18:16 Oxygen Delivery Room Air 12/17/24 18:16 Temperature 98.4 F 12/17/24 18:16 Pulse Rate 73 12/17/24 18:16 Respiratory Rate 20 12/17/24 18:16 Blood Pressure 142/72 H 12/17/24 18:16 Pulse Oximetry 100 12/17/24 18:16 Oxygen Delivery Room Air 12/17/24 18:16 Reviewed MDM - Skin/Abscess/Foreign Bdy MDM Narrative Medical decision making narrative: Discussed physical exam findings c/w contact dermatitis; reviewed RX. Advised supportive measures and signs/symptoms to go to the ER. Pt is appropriate for outpt treatment and f/u. Differential Diagnosis Differential diagnosis: Likely abscess of skin or subcutaneous tissue, viral exanthem, dermatophytosis, urticaria, herpes zoster, cellulitis, eczema, insect bites, impetigo and contact dermatitis Discharge Plan Discharge Clinical Impression: Contact dermatitis Patient Disposition: Home Condition: Stable Instructions: Antibiotic Form, Poison Carmelina (ED) Additional Instructions: Take steroids as directed. Benadryl or Claritin/ Zyrtec according to package directions as needed for itching You can apply cream such as Calamine, IvyDry, or Benadryl as needed for itching Cool compresses to the sites of itching, avoid hot water. Avoid scratching to reduce the risk of infection keep the skin clean and dry, cleanse with a gentle soap and allow to fully dry Keep draining wounds covered with nonstick dressings Follow up with your primary care provider as needed in 1 week Go to the ER for worsening symptoms or concerns (lip, tongue, throat swelling/itching, trouble breathing etc) Patient Language: [place] Prescriptions: New clindamycin HCl [Cleocin HCl] 300 mg capsule 300 mg PO Q8H 7 Days Qty: 21 0RF methylprednisolone [Medrol (Lamberto)] 4 mg tablets,dose pack See Rx Instructions .ROUTE .COMPLEX Qty: 21 0RF Rx Instructions: orally per package directions No Action norgestimate-ethinyl estradiol [Sprintec (28)] 0.25-35 mg-mcg tablet 1 tablet PO DAILY bupropion HCl 300 mg tablet extended release 24 hr PO buspirone 10 mg tablet Follow-up/Referrals: Misti,Lucy Jones PHYSICAL THERAPIST TECHNICIAN [Primary Care Provider] -
== END 2024-12-17 18:37 | disposition home or self-care (01) ==
PROVIDERS: Emergency Provider Nurse Practitioner Family; PCP Nurse Practitioner
DX: L25.9 Unspecified contact dermatitis, unspecified cause (principal); Z86.14 Personal history of Methicillin resistant Staphylococcus aureus infection
CPT/HCPCS: 99213; G0463